=== PATIENT | female | born 1985 | race African-American/Black ===

== ENCOUNTER 2020-04-28 16:16 | Emergency (ER) | payer BC ==
[2020-04-28 16:23] VITALS: BP 126/83; PULSE 84; TEMP 98.4; BMI 32.8
--- NOTE | 2020-04-28 16:40 | PDOC ---
History of Present Illness - General Chief Complaint: Alcohol intoxication Stated Complaint: ALC. WITHDRAWL Time Seen by Provider: 04/28/20 16:31 History Source: Patient Exam Limitations: No Limitations - History of Present Illness Initial Comments: 04/28/20 16:40 HISTORY OF PRESENT ILLNESS: 34-year-old woman presents emergency department for evaluation of pruritus for 1 week. Patient reports she is a chronic alcoholic drinking up to 1/5 of vodka/tequila daily but over the past week and a half has decreased her alcohol consumption to a pint daily. Patient reports was juliette roximately 1 week ago when she began to experience the pruritus throughout her body. Patient was seen by a neurologist today for pruritus who recommended she come to the emergency department for possible alcohol withdrawal. Patient reports her last alcohol drink was approximately 12 hours ago. Patient denies visualizations, audio hallucinations, homicidal ideation, paranoid ideation, suicidal ideation. No recent travel or sick contacts. PAST MEDICAL HISTORY: Alcohol abuse SURGICAL HISTORY: Denies ALLERGIES: No known drug allergies REVIEW OF SYSTEMS General/Constitutional: Denies fever or chills. Denies weakness, weight change. HEENT: Denies change in vision. Denies ear pain or discharge. Denies sore throat. Cardiovascular: Denies chest pain or shortness of breath. Respiratory: Denies cough, wheezing, or hemoptysis. Gastrointestinal: Denies nausea, vomiting, diarrhea or constipation. Denies rectal bleeding. Genitourinary: Denies dysuria, frequency, or change in urination. Musculoskeletal: Denies joint or muscle swelling or pain. Denies neck or back pain. Skin and breasts: See HPI Neurologic: Denies headache, vertigo, loss of consciousness, or loss of sensation. Psychiatric: Denies depression or anxiety. Endocrine: Denies increased thirst. Denies abnormal weight change. Hematologic/Lymphatic: Denies anemia, easy bleeding, or history of blood clots. Allergic/Immunologic: Denies hives or skin allergy. Denies latex allergy. PHYSICAL EXAM General Appearance: Well-appearing, appropriately dressed. No apparent distress, no intoxication. HEENT: EOMI, PERRLA, normal ENT inspection, normal voice, TMs normal, pharynx normal. No conjunctival pallor. No photophobia, scleral icterus. Neck: Supple. Trachea midline. No tenderness, rigidity, carotid bruit, stridor, lymphadenopathy, or thyromegaly. Respiratory/Chest: Lungs CTAB. No shortness of breath, chest tenderness, r espiratory distress, accessory muscle use. No crackles, rales, rhonchi, stridor, wheezing, dullness Cardiovascular: RRR. S1, S2. No JVD, murmur, bradycardia, tachycardia. Vascular Pulses: Dorsalis-Pedis (R): 2+, Dorsalis-Pedis (L): 2+ Gastrointestinal/Abdominal: Normal bowel sounds. Abdomen soft, non-distended. No tenderness or rebound tenderness. No organomegaly, pulsatile mass, guarding, hernia, hepatomegaly, splenomegaly. Lymphatic: No adenopathy, tenderness. Musculoskeletal/Extremities: Normal inspection. FROM of all extremities, normal capillary refill. Pelvis Stable. No CVA tenderness. No tenderness to extremities, pedal edema, swelling, erythema or deformity. Integumentary: Appropriate color, dry, warm. No cyanosis, erythema, jaundice or rash Neurologic: dish machine operator II-XII intact. Fully oriented, alert. Appropriate mood/affect. Motor strength 5/5. No appreciable EOM palsy, facial droop or sensory deficit. 04/28/20 16:44 Past History - Medical History Allergies/Adverse Reactions: Allergies Allergy/AdvReac Type Severity Reaction Status Date / Time No Known Allergies Allergy Verified 04/28/20 16:19 Home Medications: Ambulatory Orders Cephalexin Monohydrate [Keflex -] 500 mg PO BID #14 capsule 04/28/20 hydrOXYzine PAMOATE [Vistaril -] 25 mg PO TID #21 capsule 04/28/20 COPD: No - Reproductive History Is Patient Now?: No - Psycho-Social/Smoking History Smoking History: Never smoked - Substance Abuse Hx (Audit-C & DAST Scrn) How often the patient has a drink containing alcohol: 4 0r more times/wk Number of drinks the patient has on a typical day: 3 or 4 How often the patient has six or more drinks on one occasion: Daily or almost daily Score: In Men: 4 or > Positive; In Women: 3 or > Positive: 9 Screen Result (Pos requires Nsg. Audit-10AR): Positive In the last yr the pt used illegal drug/Rx for NonMed reason: No Score: Yes response is considered Positive: 0 Screen Result (Positive result requires Nsg. DAST-10): Negative *Physical Exam - Vital Signs Last Vital Signs Temp Pulse Resp BP Pulse Ox 98.4 F 84 18 126/83 99 04/28/20 16:20 04/28/20 16:20 04/28/20 16:20 04/28/20 16:20 04/28/20 16:20 ED Treatment Course - LABORATORY CBC & Chemistry Diagram: 04/28/20 17:00 04/28/20 17:00 Medical Decision Making - Medical Decision Making 04/28/20 16:42 A/P: 34-year-old woman for evaluation of pruritus As patient has chronic alcohol usage questionable if this is alcohol withdrawal versus liver failure versus uremia vs idiopathic CIWA-Ar Score-2 Physical exam is unremarkable Basic labs, alcohol level, urinalysis, urine , urine toxicology Likely discharge 04/28/20 18:45 UA with suggestion of infection. Urine culture Discharge home with prescription for Keflex Otherwise laboratory testing is unremarkable Hydroxyzine Discharge home with referral for detox should patient choose. Patient is concerned that if she starts detox now she will not be able to complete errands that she has lined up for the next couple of days. I discussed the physical exam findings, ancillary test results and final diagnoses with the patient. I answered all of the patient's questions. The patient was satisfied with the care received and felt comfortable with the discharge plan and treatment plan. The patient will call their primary care physician within 24 hours to arrange follow-up and will return to the Emergency Department with any new, persistent or worsening symptoms. Portions of this note have been documented using voice recognition software. As a result, errors may occur in the marzipan maker process. Effort has been made to correct all grammatical and marzipan maker error, but some may have been missed which may produce sporadic inaccurate marzipan maker or nonsensical phrases. Discharge - Discharge Information Problems reviewed: Yes Clinical Impression/Diagnosis: Pruritus UTI (urinary tract infection) Qualifiers: Urinary tract infection type: acute cystitis Hematuria presence: without hematuria Qualified Code(s): N30.00 - Acute cystitis without hematuria Condition: Fair Disposition: HOME - Admission No - Additional Discharge Information Prescriptions: Cephalexin Monohydrate [Keflex -] 500 mg PO BID #14 capsule hydrOXYzine PAMOATE [Vistaril -] 25 mg PO TID #21 capsule - Follow up/Referral Referrals: ON STAFF,NOT [Primary Care Provider] - - Patient Discharge Instructions Additional Instructions: Avoid drinking alcohol. Eat a well-balanced diet. Keep well-hydrated with nonalcoholic fluids. You can call our detox facility at at any time should you choose to pursue detox treatments. Rest, drink lots of fluids: Teas, water, soups Avoid contact with others until fevers and symptoms resolved Lots of handwashing and good hygiene Continue [id number] medications for symptomatic relief Tylenol or Motrin for fever and pain Continue all of antibiotics until completed Followup with private physician in one week for repeat urinalysis/reevaluation Return to emergency department for worsened symptoms, fevers, dehydration - Post Discharge Activity
[2020-04-28 17:51] LABS: HCG,QUALITATIVE URINE Negative
[2020-04-28 17:55] LABS: COCAINE, UR NEGATIVE ng/ml (CUTOFF=300); METHADONE, UR NEGATIVE ng/ml (CUTOFF=300); OPIATES, URI NEGATIVE ng/ml (CUTOFF=300); PHENCYCLIDINE,URINE NEGATIVE ng/ml (CUTOFF=25); URINE AMPHETAMINES NEGATIVE ng/ml (CUTOFF=500); URINE BARBITURATES NEGATIVE ng/ml (CUTOFF=200); URINE BENZODIAZEPINES NEGATIVE ng/ml (CUTOFF=200)
[2020-04-28 17:57] LABS: BASO % 0.4 % (0-2.0); EOS % 3.5 % (0-4.5); HEMATOCRIT 35.5 % (32.4-45.2); HEMOGLOBIN 11.8 GM/dL (10.7-15.3); LYMPH % 23.1 % (8-40); MCH 31.3 pg (25.7-33.7); MCHC 33.3 g/dl (32.0-36.0); MEAN PLT VOLUME 8.6 fl (7.5-11.1); MONO % 10.2 % (3.8-10.2); NEUT % 62.8 % (42.8-82.8); PLATELET COUNT 290 K/MM3 (134-434); RBC 3.78 M/mm3 (3.60-5.2); RDW 13.8 % (11.6-15.6); WHITE BLOOD COUNT 8.1 K/mm3 (4.0-10.0)
[2020-04-28 18:01] LABS: EPI CELLS 23 /uL (0-25.1); HYALINE CASTS 0 /uL (0-3.1); URINE APPEARANCE CLEAR; URINE BACTERIA 880 /uL (0-1359); URINE BILIRUBIN NEGATIVE (NEGATIVE); URINE COLOR YELLOW; URINE GLUCOSE (UA) NEGATIVE (NEGATIVE); URINE KETONE TRACE (NEGATIVE); URINE LEUK ESTERASE TRACE (NEGATIVE); URINE NITRITE NEGATIVE (NEGATIVE); URINE PROTEIN NEGATIVE (NEGATIVE); URINE RBC 10 /uL (0-23.9); URINE WBC 16 /uL (0-25.8)
[2020-04-28 18:27] LABS: ALBUMIN 3.8 g/dl (3.4-5.0); ALK PHOS 84 U/L (45-117); ANION GAP 7 MMOL/L (8-16); BILIRUBIN,TOTAL 0.2 mg/dL (0.2-1); BLOOD UREA NITROGEN 14.8 mg/dL (7-18); CALCIUM 8.9 mg/dL (8.5-10.1); CHLORIDE 104 mmol/L (98-107); CO2 27 mmol/L (21-32); CREATININE 1.1 mg/dL (0.55-1.3); GLUCOSE,RANDOM 87 mg/dL (74-106); POTASSIUM 4.1 mmol/L (3.5-5.1); SGOT/AST 20 U/L (15-37); SGPT/ALT 30 U/L (13-61); SODIUM 138 mmol/L (136-145); TOT PROT 7.9 g/dl (6.4-8.2)
[2020-04-28] MEDS ORDERED: hydrOXYzine PAMOATE 25 MG CAPSULE (FP) PO ONE ×2 (18:43→18:48)
== END 2020-04-28 19:00 | disposition home or self-care (01) ==
LOC: JER 16:16
DX: L29.9 Pruritus, unspecified (principal); N30.00 Acute cystitis without hematuria
CPT/HCPCS: 36415; 80053; 80307; 81003; 84703; 85025; 99284-25

== ENCOUNTER 2020-10-13 20:44 | Emergency (ER) | payer BC ==
[2020-10-13 20:58] VITALS: BP 112/68; PULSE 73; TEMP 97.5; BMI 33.6
== END 2020-10-13 22:24 | disposition home or self-care (01) ==
LOC: JER 20:44
PROC: 0HQGXZZ Repair Left Hand Skin, External Approach (ICD-10-PCS; principal; 2020-10-13)
DX: S61.251A Open bite of left index finger without damage to nail, initial encounter (principal)
CPT/HCPCS: 12001-25; 99284-25

== ENCOUNTER 2021-05-14 15:08 | Emergency (ER) | payer BC ==
[2021-05-14 15:18] VITALS: BP 129/72; PULSE 80; TEMP 98.7; BMI 31.3
[2021-05-14] MEDS ORDERED: FLUORESCEIN NA 1 EA STRIP OU ONE (15:39)
[2021-05-14] MEDS ORDERED: TETRACAINE 0.5% OPHTH SOLN 2 ML BOTTLE OU ONE (15:39)
[2021-05-14] MEDS ORDERED: ERYTHROMYCIN 0.5% OPHTHALMIC OINTMENT 3.5 GM TUBE OU ONE (15:40)
[2021-05-14] MEDS ORDERED: ERYTHROMYCIN 0.5% OPHTHALMIC OINTMENT 3.5 GM TUBE ONE (15:40)
== END 2021-05-14 15:45 | disposition home or self-care (01) ==
LOC: JERFT 15:08
DX: H10.33 Unspecified acute conjunctivitis, bilateral (principal)
CPT/HCPCS: 99283-25